=== PATIENT | female | born 1960 | race Caucasian/White ===

== ENCOUNTER 2018-01-29 05:32 | Emergency (ER) | payer OTHER ==
[~2018-01-29 05:32] MED LIST: DENIES; LEVO750T25 PO; LORA-633 PO; METR-1 PO; OMEG-97 PO; PER PO
[2018-01-29] MEDS ORDERED: NS(*) 0.9% 1000 ML BAG 1,000 ML IV ONE (05:42)
[2018-01-29] MEDS ORDERED: ASPIRIN 81 MG CHEW PO ONE (05:45)
--- NOTE | 2018-01-29 05:51 | EKG ---
FACILITY: [facility] - [place] PATIENT NAME: JUANA MCFARLAND : [id number] MR: [id number] V: [id number] EXAM DATE: ORDERING PHYSICIAN: MOY GALDAMEZ TECHNOLOGIST: GUILLERMINA Test Reason : CHEST PAIN Blood Pressure : / mmHG Vent. Rate : 094 BPM Atrial Rate : 094 BPM P-R Int : 136 ms QRS Dur : 078 ms QT Int : 354 ms P-R-T Axes : 072 061 085 degrees QTc Int : 442 ms Sinus rhythm with Possible premature atrial complexes with aberrant conduction Low voltage QRS Nonspecific ST abnormality Abnormal ECG No previous ECGs available Confirmed by KALEE FISHER ([id number]) on 01/29/2018 6:44:04 AM Referred By: Confirmed By:KALEE FISHER
--- NOTE | 2018-01-29 06:01 | ER Report ---
History and Physical Time Seen By MD: 05:40 Hx. of Stated Complaint: PT WAS AWOKEN WITH SUDDEN CHEST PAIN. HPI/ROS CHIEF COMPLAINT: Palpitations, dizziness HISTORY OF PRESENT ILLNESS: 57-year-old female presents to the ER. He woke up with chest pain, feeling near syncopal.. She's been having bouts of tachycardia for 3-4 weeks, similar to episodes she had 10 years ago. She was evaluated by Dr. Kacey Zaldivar [facility].[id number], [place] [address] [phone] and underwent an ablation approximately 10 years ago. She states she was on metoprolol back then.. REVIEW OF SYSTEMS: Respiratory: As above Cardiovascular: As above Gastrointestinal: No vomiting, no abdominal pain. Musculoskeletal: No back pain. Allergies: Coded Allergies: No Known Drug Allergies (Verified , 01/29/18) Home Meds Active Scripts Metoprolol Tartrate (METOPROLOL TARTRATE) 25 Mg Tablet, 1 TAB PO BID for prevention of heart racing, #60 TAB Prov:MOY GALDAMEZ DO 01/29/18 Reported Medications Lorazepam (Lorazepam) 1 Mg Tablet, 1 MG PO Q6H, #10 0 Refills 10/10/09 [place]-3 Acid Ethyl Esters (Lovaza) 1 G Capsule, 1 G PO D, 0 Refills 10/10/09 Hx Substance Use Disorder: No Hx Alcohol Use: No Constitutional Vital Sign - Last 24 Hours 01/29/18 01/29/18 01/29/18 01/29/18 05:35 05:35 05:45 05:47 Temp 98.4 Pulse 117 96 Resp 16 B/P (MAP) 170/103 170/103 (125) 120/101 (107) Pulse Ox 93 98 O2 Delivery Room Air 01/29/18 01/29/18 01/29/18 01/29/18 06:00 06:02 06:17 06:30 Pulse 84 83 B/P (MAP) 125/91 (102) 128/94 (105) Pulse Ox 97 97 01/29/18 06:32 Pulse 86 Resp 13 Pulse Ox 96 Physical Exam Vital signs stable, afebrile, pulse ox normal General Appearance: The patient is alert, has no immediate need for airway protection and no current signs of toxicity. Skin warm, dry, pink, no acute distress HEENT: Pupils equal and round no injection. Oropharynx without redness or exudate, mucous. Membranes are moist Respiratory: Chest is non tender, lungs are clear to auscultation. No chest wall tenderness Cardiac: regular rate and rhythm. Occasional ectopic beat., No murmur appreciated Gastrointestinal: Abdomen is soft and non tender, no masses, bowel sounds normal. Musculoskeletal: Neck: Neck is supple and non tender. Extremities have full range of motion and are non tender. No edema, no calf tenderness Skin: No rashes or lesions. DIFFERENTIAL DIAGNOSIS: After history and physical exam differential diagnosis was considered for cardiac dysrhythmia, SVT, ventricular tachycardia,syncope including but not limited to vasovagal syncope, arrhythmia, dehydration, and blood loss. Medical Decision Making Data Points Result Diagram: 01/29/18 0550 01/29/18 0550 Laboratory Hematology Test 01/29/18 05:50 Red Blood Count 4.65 M/uL (4.17-5.56) Mean Corpuscular Volume 86.9 fL (80.0-96.0) Mean Corpuscular Hemoglobin 30.6 pg (26.0-33.0) Mean Corpuscular Hemoglobin Concent 35.2 g/dL (32.0-36.0) Red Cell Distribution Width 12.8 % (11.5-14.5) Mean Platelet Volume 7.7 fL (7.2-11.1) Neutrophils (%) (Auto) 55.7 % (39.4-72.5) Lymphocytes (%) (Auto) 33.0 % (17.6-49.6) Monocytes (%) (Auto) 6.8 % (4.1-12.4) Eosinophils (%) (Auto) 3.6 % (0.4-6.7) Basophils (%) (Auto) 0.9 % (0.3-1.4) Nucleated RBC Relative Count (auto) 0.1 /100WBC Neutrophils # (Auto) 3.9 K/uL (2.0-7.4) Lymphocytes # (Auto) 2.3 K/uL (1.3-3.6) Monocytes # (Auto) 0.5 K/uL (0.3-1.0) Eosinophils # (Auto) 0.2 K/uL (0.0-0.5) Basophils # (Auto) 0.1 K/uL (0.0-0.1) Nucleated RBC Absolute Count (auto) 0.01 K/uL Prothrombin Time 12.7 seconds (12.0-14.4) Prothromb Time International Ratio 0.96 Activated Partial Thromboplast Time 29 seconds (23-35) D-Dimer Quantitative (PE/DVT) < 0.27 ug/ml (0-0.50) Sodium Level 140 mmol/L (137-145) Potassium Level 3.5 mmol/L (3.5-5.0) Chloride Level 107 mmol/L (98-107) Carbon Dioxide Level 21 mmol/L (22-31) Blood Urea Nitrogen 20 mg/dl (7-18) Creatinine 0.80 mg/dl (0.52-1.04) Glomerular Filtration Rate Calc > 60.0 Random Glucose 113 mg/dl (75-110) Calcium Level 9.4 mg/dl (8.4-10.2) Magnesium Level 1.8 mg/dl (1.7-2.2) Total Bilirubin 0.9 mg/dl (0.2-1.3) Aspartate Amino Transf (AST/SGOT) 30 U/L (0-35) Alanine Aminotransferase (ALT/SGPT) 31 U/L (0-56) Alkaline Phosphatase 102 U/L (0-126) Troponin I < 0.012 ng/ml B-Type Natriuretic Peptide 33 pg/ml (0-100) Total Protein 6.3 gm/dl (6.3-8.2) Albumin 3.8 g/dl (3.5-5.0) Chemistry Test 01/29/18 05:50 White Blood Count 6.9 k/uL (4.5-11.0) Red Blood Count 4.65 M/uL (4.17-5.56) Hemoglobin 14.2 g/dL (12.0-16.0) Hematocrit 40.4 % (34.0-47.0) Mean Corpuscular Volume 86.9 fL (80.0-96.0) Mean Corpuscular Hemoglobin 30.6 pg (26.0-33.0) Mean Corpuscular Hemoglobin Concent 35.2 g/dL (32.0-36.0) Red Cell Distribution Width 12.8 % (11.5-14.5) Platelet Count 240 K/uL (150-450) Mean Platelet Volume 7.7 fL (7.2-11.1) Neutrophils (%) (Auto) 55.7 % (39.4-72.5) Lymphocytes (%) (Auto) 33.0 % (17.6-49.6) Monocytes (%) (Auto) 6.8 % (4.1-12.4) Eosinophils (%) (Auto) 3.6 % (0.4-6.7) Basophils (%) (Auto) 0.9 % (0.3-1.4) Nucleated RBC Relative Count (auto) 0.1 /100WBC Neutrophils # (Auto) 3.9 K/uL (2.0-7.4) Lymphocytes # (Auto) 2.3 K/uL (1.3-3.6) Monocytes # (Auto) 0.5 K/uL (0.3-1.0) Eosinophils # (Auto) 0.2 K/uL (0.0-0.5) Basophils # (Auto) 0.1 K/uL (0.0-0.1) Nucleated RBC Absolute Count (auto) 0.01 K/uL Prothrombin Time 12.7 seconds (12.0-14.4) Prothromb Time International Ratio 0.96 Activated Partial Thromboplast Time 29 seconds (23-35) D-Dimer Quantitative (PE/DVT) < 0.27 ug/ml (0-0.50) Glomerular Filtration Rate Calc > 60.0 Calcium Level 9.4 mg/dl (8.4-10.2) Magnesium Level 1.8 mg/dl (1.7-2.2) Total Bilirubin 0.9 mg/dl (0.2-1.3) Aspartate Amino Transf (AST/SGOT) 30 U/L (0-35) Alanine Aminotransferase (ALT/SGPT) 31 U/L (0-56) Alkaline Phosphatase 102 U/L (0-126) Troponin I < 0.012 ng/ml B-Type Natriuretic Peptide 33 pg/ml (0-100) Total Protein 6.3 gm/dl (6.3-8.2) Albumin 3.8 g/dl (3.5-5.0) Coagulation Test 01/29/18 05:50 Prothrombin Time 12.7 seconds Prothromb Time International Ratio 0.96 Activated Partial Thromboplast Time 29 seconds D-Dimer Quantitative (PE/DVT) < 0.27 ug/ml EKG/Imaging Imaging 12 lead EKG: Rhythm: Normal sinus rhythm, 94 bpm, with atrial premature complexes with Advair conduction/PVCs [place]: normal QRS: normal ST segments: Nonspecific ST and T-wave changes related to aberrant conduction. ED Course/Re-evaluation Clinical Indication for ER IV: Hydration, IV Access ED Course Patient was admitted to an examination room. H&P was done. The differential diagnoses was considered. On clinical examination. Patient has stable vital signs. On the cardiac rhythm monitor. Patient has frequent bigeminy. She has a parent wide-complex beats intermittently. Patient notes and she has he is a parent conductions. She states she awoke with shortness of breath, near- syncope and chest tightness. She's been having bouts of this for several weeks potentially 4 weeks. They become intermittent. This morning she had profound symptoms. He presented to the ER for evaluation. Diagnostic evaluation shows an EKG with bigeminy. Patient's diagnostic studies, troponin, d-dimer, BNP and magnesium are unreemarkable. Patient given metoprolol 25 mg by mouth. She is advised to continue metoprolol 25 mg by mouth twice a day follow-up with Dr. Canales local spoilage worker and Dr. Zaldivar cardiology/electrophysiology Specialist, who she has previously been evaluated by. Decision to Disposition Date: January 29, 2018 Decision to Disposition Time: 06:03 Depart Departure Latest Vital Signs Vital Signs Date Time Temp Pulse Resp B/P (MAP) Pulse Ox O2 Delivery O2 Flow Rate FiO2 01/29/18 06:32 86 13 96 01/29/18 06:30 128/94 (105) 01/29/18 05:35 98.4 Room Air Impression: Primary Impression: Palpitations Additional Impressions: Bigeminy History of cardiac dysrhythmia History of prior ablation treatment Condition: Improved Disposition: HOME OR SELF-CARE New Scripts Metoprolol Tartrate (METOPROLOL TARTRATE) 25 Mg Tablet 1 TAB PO BID for prevention of heart racing, #60 TAB Prov: MOY GALDAMEZ DO 01/29/18 Patient Instructions: Palpitations (ED) Additional Instructions: Follow-up with cardiology, Dr. Canales and Dr. Zaldivar Problem Qualifiers MOY GALDAMEZ DO January 29, 2018 06:01
[2018-01-29] MEDS ORDERED: METO25TA93 PO (06:10)
[2018-01-29] MEDS ORDERED: METOPROLOL TART 50 MG TAB PO ONE (06:10)
[2018-01-29 06:12] LABS: PLATELET COUNT, AUTOMATED 240 K/uL (150-450)
[2018-01-29 06:21] LABS: INR 0.96
[2018-01-29 06:30] VITALS: BP 128/94
--- NOTE | 2018-01-29 06:45 | RADIOLOGY IMAGING REPORT ---
FACILITY: [facility] [place] PATIENT NAME: Ketty Ch : 1960 MR: [id number] V: [id number] EXAM DATE: ORDERING PHYSICIAN: MOY GALDAMEZ TECHNOLOGIST: Location: [facility] [place] Patient: Ketty Ch : 1960 Visit/Account:[id number] Date of Sevice: 01/29/2018 CHEST SINGLE AP Additional pertinent History: Chest pain COMPARISON STUDIES: 10/10/2009 FINDINGS: Support lines and catheters: EKG wire leads Lungs and Pleura: Minimal scarring in the left lower chest. No consolidation. No pneumothorax. No ef fusion. No parenchymal mass lesion. Heart and vasculature: Cardiac and hilar structures well-maintained. Lupe and Mediastinum: Negative. Bones and Chest wall: Bony structures unremarkable. Upper Abdomen: Negative. IMPRESSION: 1. Negative chest for acute cardiopulmonary disease. Minimal scarring in the left lung base. Report Dictated By: Tobi Parker MD at 01/29/2018 6:39 AM Report E-Signed By: Tobi Parker MD at 01/29/2018 6:41 AM WSN:[id number]
== END 2018-01-29 06:49 | disposition home or self-care (01) ==
LOC: ER 05:45
DX: R00.8 Other abnormalities of heart beat (principal); R00.2 Palpitations; R55 Syncope and collapse; R94.31 Abnormal electrocardiogram [ECG] [EKG]
CPT/HCPCS: 71045; 83735; 83880; 84484; 85025; 85379; 85610; 85730; 93005; 96360; 99284; J7030; 82040; 82247; 82310; 82374; 82435; 82565; 82947; 84075; 84132; 84155; 84295; 84450; 84460; 84520

== ENCOUNTER → 2018-10-13 | Outpatient (CLI) | payer OTHER ==
[~2018-10-13] MED LIST changes: +METO25TA93 PO
--- NOTE | 2018-10-13 13:44 | EKG ---
FACILITY: [facility] - [place] PATIENT NAME: JUANA MCFARLAND : [id number] MR: [id number] V: [id number] EXAM DATE: ORDERING PHYSICIAN: GONZALEZ RAIN TECHNOLOGIST: ANTHONY Test Reason : ABNORMAL HEART SOUND Blood Pressure : / mmHG Vent. Rate : 096 BPM Atrial Rate : 096 BPM P-R Int : 124 ms QRS Dur : 082 ms QT Int : 366 ms P-R-T Axes : 076 057 061 degrees QTc Int : 462 ms Sinus rhythm with premature ventricular complexes Low voltage QRS ST abnormality non-specific Abnormal ECG When compared with ECG of 29-JAN-2018 05:45, No significant change was found Confirmed by Musa Leblanc ([id number]) on 10/13/2018 9:09:00 PM Referred By: KOFFI Confirmed By:Musa Cotto
--- NOTE | 2018-10-13 18:00 | RADIOLOGY IMAGING REPORT ---
FACILITY: [facility] - [place] PATIENT NAME: Ketty Ch : 1960 MR: [id number] V: [id number] EXAM DATE: ORDERING PHYSICIAN: GONZALEZ RAIN TECHNOLOGIST: Location: [facility] [place] Patient: Ketty Ch : 1960 Visit/Account:[id number] Date of Sevice: 10/13/2018 CHEST PA LAT INDICATION: Chronic cough COMPARISON: 01/29/2018 FINDINGS: Heart size within normal limits. There is no focal infiltrate or lobar consolidation. There is no pneumothorax or pleural effusion. IMPRESSION: 1. No acute cardiopulmonary process. Report Dictated By: Alexys Mccoy at 10/13/2018 5:50 PM Report E-Signed By: Alexys Mccoy at 10/13/2018 5:50 PM WSN:[id number]
== END ==
LOC: RAD 13:04
PROVIDERS: ATTEND Family Medicine
DX: R94.31 Abnormal electrocardiogram [ECG] [EKG] (principal); I45.81 Long QT syndrome; J40 Bronchitis, not specified as acute or chronic
CPT/HCPCS: 71046; 93005